=== PATIENT | female | born 1995 | race Caucasian/White ===

== ENCOUNTER 2016-07-19 11:49 | Emergency (ER) | payer MEDICAID ==
--- NOTE | 2016-07-19 12:13 | EDPHY ---
H & P Stated Complaint: c/o Rt lower back pain - then rash in area Time Seen by Provider: 07/19/16 11:54 HPI/ROS: CHIEF COMPLAINT: Rash on buttock HISTORY OF PRESENT ILLNESS: This is a healthy 21-year-old female who reports a rash on her right buttock but has been expanding over the last 4 days. She noted some right hip pain 5 or 6 days ago and saw her chiropractor for this. There was no relief after chiropractic treatment. The following day she developed a rash that appears to be kind of bumpy or blistery. She is concerned that it might be shingles. The rash continues to progress. She is not otherwise been ill. She denies fever, urinary symptoms, diarrhea, and abdominal pain. She was not immunized as a child. She has had chickenpox. REVIEW OF SYSTEMS: A ten point review of systems was performed and is negative with the exception of the items mentioned in the HPI. Exam Limitations: No limitations - Personal History LMP (Females 10-55): Now Tetanus Vaccine Date: within 10 yrs - Medical/Surgical History Other PMH: DENIES - Social History Smoking Status: Current every day smoker Alcohol Use: Occasionally Additional Social History: She works as a nutritional services cook. She is single. - Physical Exam Exam: General Appearance: Alert. Vital signs reviewed. Neck: No lymphadenopathy. Respiratory: Lungs are clear to auscultation; no wheezes, rales, or rhonchi. Cardiovascular: Regular rate and rhythm; no murmur, rub, or gallop. Gastrointestinal: Abdomen is soft and nontender, no masses or organomegaly, bowel sounds normal. Skin: Warm and dry, normal color. Back: Nontender to palpation over the thoracolumbar spine. No CVAT. Buttocks: Vesicular lesions extending from the midline of the mid right buttock onto the right hip region. No crusting. No weeping. No surrounding erythema or warmth. Neurological: Alert and oriented. Moving all four extremities easily and equally. Psychiatric: Normal affect. Constitutional: Initial Vital Signs Temperature (C) 36.6 C 07/19/16 11:56 Heart Rate 68 07/19/16 11:56 Respiratory Rate 18 07/19/16 11:56 Blood Pressure 122/75 H 07/19/16 11:56 O2 Sat (%) 97 07/19/16 11:56 O2 Delivery Mode Room Air Allergies/Adverse Reactions: No Known Allergies Allergy (Unverified 03/01/14 09:40) Home Medications: Medication Instructions Recorded Gabapentin [Neurontin 300 MG (*)] 300 mg PO HS #30 cap 07/19/16 Valacyclovir HCl [Valacyclovir] 1,000 mg PO Q8HRS #42 07/19/16 Medical Decision Making ED Course/Re-evaluation: 21-year-old on immunized female presents with shingles involving the right buttock. The lesions continue to progress. Although she is for 5 days into this I am recommending antiviral medication, as the lesions are not yet crusted. Based upon the appearance and location of these lesions I feel confident that this is shingles. I do not suspect a contact dermatitis. These are not hives. There is no evidence of infection such as cellulitis or abscess. She does not want to take opiate pain medication. She is given instructions about Tylenol and ibuprofen. She is also given a prescription for Neurontin, with the understanding that this medication may or may not be helpful in this setting. Departure - Departure Disposition: Home, Routine, Self-Care Clinical Impression: Shingles Qualifiers: Herpes zoster complications: without complications Qualified Code(s): B02.9 - Zoster without complications Condition: Good Instructions: Shingles (ED) Additional Instructions: Take the valcyclovir as prescribed. Take 1000 mg 3 times daily, once every 8 hours, for 7 days. Try the Gabapentin for pain. It may or may not be helpful. I think it is worth a try though. You should take 300 mg on the 1st day, 300 mg twice daily on the 2nd day, and then take it 3 times daily for a week. It is also fine for you to take Tylenol and/or ibuprofen for your pain. Referrals: Yun Geller MD [Medical Doctor] - As per Instructions Prescriptions: Valacyclovir HCl [Valacyclovir] 1,000 mg PO Q8HRS #42 Gabapentin [Neurontin 300 MG (*)] 300 mg PO HS #30 cap
[2016-07-19 12:16] VITALS: BP 122/75; PULSE 68; RESP 18; TEMP 98; O2SAT 97
== END 2016-07-19 12:21 | disposition home or self-care (01) ==
LOC: CED 11:49
DX: B02.9 Zoster without complications (principal); F17.200 Nicotine dependence, unspecified, uncomplicated